=== PATIENT | male | born 1990 | race Caucasian/White ===

== ENCOUNTER 2016-10-04 13:34 | Emergency (ER) | payer MEDICAID ==
[~2016-10-04] VITALS: Ht 185.4 cm; Wt 136.0 kg
[2016-10-04 13:45] VITALS: BP 151/101
[2016-10-04] MEDS ORDERED: LIDOCAINE 1%, 20ML SQ ONE (14:30)
[2016-10-04] MEDS ORDERED: LIDOCAINE 1%, 20ML ONE (15:29)
== END 2016-10-04 16:57 | disposition home or self-care (01) ==
LOC: ED 16:51
DX: L05.01 Pilonidal cyst with abscess (principal); M54.5 Low back pain
CPT/HCPCS: 10080